=== PATIENT | female | born 1945 | race Caucasian/White ===

== ENCOUNTER → 2017-01-01 | Outpatient (CLI) | payer MEDICARE, BC ==
[~2017-01-01] MED LIST: ASPIRIN81 MG PO; BAYER ASPIRIN325 M1 PO; CHOLESTEROL MED; FISH OIL 1,0001 CAP PO; LOPID600 MG PO; MOTRIN600 M1 PO; NATURAL VITA400 UNI2 PO; TIMOPTIC 0.25% O5 M1 OD; TRAVATAN5 ML OP; TYLENOL #3 PO; VICODIN 5/500 T1 TAB PO
[2017-01-01 10:11] LABS: CHOLESTEROL 112 mg/dL (0-200); GLUCOSE FASTING 95 mg/dL (70-110); HDL CHOLESTEROL 34 mg/dL (35-95); LDL CHOLESTEROL 57 mg/dL ([, -130]); LDL/HDL RATIO 2 RATIO (0-4); TRIGLYCERIDES 106 mg/dL (10-160)
== END | disposition home or self-care (01) ==
LOC: CLAB 08:48
DX: Z48.812 Encounter for surgical aftercare following surgery on the circulatory system (principal); Z98.61 Coronary angioplasty status
CPT/HCPCS: 80061; 82947; 83036; 86140